=== PATIENT | female | born 1935 | race Caucasian/White ===

== ENCOUNTER 2021-09-13 12:25 | Inpatient (IN) | payer MEDICARE ==
[2021-09-13 13:39] LABS: BASOPHILS % (AUTO) 0.5 % (0.0-2.0); EOSINOPHILS % (AUTO) 0.3 % (1.0-6.0); HEMATOCRIT 39.3 % (36-46); HEMOGLOBIN 13.4 g/dL (12.0-16.0); LYMPHOCYTES # (AUTO) 2.1 K/uL (1.0-4.8); LYMPHOCYTES % (AUTO) 24.7 % (22.0-44.0); MEAN CORPUSCULAR HEMOGLOBIN 31.4 pg (26.0-34.0); MEAN CORPUSCULAR HGB CONC 34.1 G/dL (31.0-37.0); MEAN CORPUSCULAR VOLUME 92 fL (80-100); MONOCYTES # (AUTO) 0.6 K/uL (0.1-1.0); MONOCYTES % (AUTO) 7.2 % (2.0-9.0); NEUTROPHILS # (AUTO) 5.7 K/uL (1.8-7.7); NEUTROPHILS % (AUTO) 67.3 % (40.0-70.0); PLATELET COUNT (AUTO) 251 K/uL (150-450); RED BLOOD CELL COUNT(AUTO) 4.27 MIL/uL (4.00-5.20); RED CELL DISTRIBUTION WIDTH 13.2 % (11.5-14.5)
[2021-09-13 13:48] LABS: ANION GAP 12 mmol/L (8-16); CALCIUM, TOTAL 9.7 mg/dL (8.8-10.5); CARBON DIOXIDE 23 mmol/L (22-29); CHLORIDE 105 mmol/L (98-107); CREATININE 0.65 mg/dL (0.60-1.30); GLUCOSE,RANDOM 116 mg/dL (70-110); SODIUM SERUM 140 mmol/L (136-145); UREA NITROGEN, BLOOD 22 mg/dL (7-18)
[2021-09-13 13:49] LABS: GLOMERULAR FILTR. RATE CALC > 60 mL/min (>60)
[2021-09-13 14:13] LABS: ALANINE AMINOTRANSFERASE 20 U/L (12-78); ALBUMIN 3.9 g/dL (3.4-5.0); ALKALINE PHOSPHATASE 78 U/L (46-116); ASPARTATE AMINOTRANSFERASE 22 U/L (15-37); BILIRUBIN,TOTAL 1.4 mg/dL (0.1-1.0); CREATINE KINASE, TOTAL ONLY 271 U/L (26-192); LIPASE 51 U/L (73-393); TOTAL PROTEIN, SERUM 8.6 g/dL (6.4-8.2)
[2021-09-13 14:27] LABS: COVID AG,FIA SOURCE NASOPHARYNGEAL
[2021-09-13] MEDS: HEPARIN SODIUM,PORCINE 5,000 UNITS/ML VIAL SQ SCH (15:29)
[2021-09-13] MEDS ORDERED: SODIUM CHLORIDE 0.9% 1,000 ML IV ONE (15:30)
[2021-09-13] MEDS ORDERED: MAGNESIUM HYDROXIDE SUSPENSION 30 ML UDCUP PO PRN (15:30)
[2021-09-13] MEDS ORDERED: ACETAMINOPHEN 325 MG TABLET PO PRN (15:30)
[2021-09-13 17:09] VITALS: BP 135/75
[2021-09-13 19:20] VITALS: BP 104/55
[2021-09-14 00:26] VITALS: BP 112/68
[2021-09-14 04:17] VITALS: BP 113/69
[2021-09-14] MEDS: HEPARIN SODIUM,PORCINE 5,000 UNITS/ML VIAL SQ SCH ×4 (08:00→23:39)
[2021-09-14] MEDS: ASPIRIN 81 MG CHEWABLE TABLET PO SCH (08:33)
[2021-09-14] MEDS: FAMOTIDINE 20 MG TABLET PO SCH (08:33)
[2021-09-14 09:00] VITALS: BP 112/58
[2021-09-14 23:53] VITALS: BP 144/68
[2021-09-15 04:16] VITALS: BP 130/62
[2021-09-15 07:21] LABS: AMPHET/METH SCREEN,URINE NEGATIVE (NEGATIVE); APPEARANCE,URINE SLIGHTLY CLOUDY (CLEAR); BARBITURATE SCREEN, URINE NEGATIVE (NEGATIVE); BENZODIAZEPINES SCREEN,URINE NEGATIVE (NEGATIVE); BILIRUBIN,URINE NEGATIVE (NEGATIVE); CANNABINOID SCREEN,URINE NEGATIVE (NEGATIVE); COCAINE SCREEN,URINE NEGATIVE (NEGATIVE); GLUCOSE, URINE (UA) NEGATIVE (NEGATIVE); KETONES,URINE NEGATIVE (NEGATIVE); LEUKOCYTE ESTERASE ,URINE SMALL (NEGATIVE); METHADONE SCREEN, URINE NEGATIVE (NEGATIVE); NITRATE,URINE POSITIVE (NEGATIVE); OCCULT BLOOD,URINE NEGATIVE (NEGATIVE); OPIATE SCREEN,URINE NEGATIVE (NEGATIVE); PROTEIN,URINE NEGATIVE (NEGATIVE); UROBILINOGEN,URINE 0.2 mg/dL (<=1.0)
[2021-09-15 07:25] VITALS: BP 130/88
[2021-09-15 07:25] LABS: BACTERIA,URINE Many /HPF (None Seen); RBC,URINE None Seen /HPF (0-2); SQUAMOUS EPITHELIAL CELL,UR Few /LPF (None Seen)
[2021-09-15 07:33] LABS: PHENCYCLIDINE SCREEN,URINE NEGATIVE (NEGATIVE)
[2021-09-15] MEDS: HEPARIN SODIUM,PORCINE 5,000 UNITS/ML VIAL SQ SCH ×3 (08:00→23:57)
[2021-09-15] MEDS: FAMOTIDINE 20 MG TABLET PO SCH (09:00)
[2021-09-15] MEDS: ASPIRIN 81 MG CHEWABLE TABLET PO SCH (09:03)
[2021-09-15 15:09] VITALS: BP 132/82
[2021-09-15 19:33] VITALS: BP 130/78
[2021-09-16 07:39] VITALS: BP 131/69
[2021-09-16] MEDS: HEPARIN SODIUM,PORCINE 5,000 UNITS/ML VIAL SQ SCH ×2 (08:00→16:00)
[2021-09-16] MEDS: ASPIRIN 81 MG CHEWABLE TABLET PO SCH (09:00)
[2021-09-16] MEDS: FAMOTIDINE 20 MG TABLET PO SCH (09:00)
[2021-09-16 15:11] VITALS: BP 112/62
== END 2021-09-16 17:35 | disposition home or self-care (01) | DRG 558 ==
LOC: EMS 12:25 → 6S 16:08 → 6N 09-15 17:33
PROVIDERS: ADMIT Psychiatry & Neurology Child & Adolescent Psychiatry; ATTEND Psychiatry & Neurology Child & Adolescent Psychiatry
DX: M62.82 Rhabdomyolysis (principal); F03.90 Unspecified dementia, unspecified severity, without behavioral disturbance, psychotic disturbance, mood disturbance, and anxiety; Z20.822 Contact with and (suspected) exposure to COVID-19
CPT/HCPCS: 70450; 71045; 80053; 81001; 82550; 83605; 83690; 84484; 85025; 87086; 93005; 99285; G0480; J1644; J7030; 36415-L1; 36415-TC